=== PATIENT | female | born 1955 | race Caucasian/White ===

== ENCOUNTER 2024-08-06 17:13 | Emergency (ER) | payer MEDICAID ==
[~2024-08-06] VITALS: Ht 157.4 cm; Wt 77.3 kg
[~2024-08-06 17:13] MED LIST: ALDACTONE25 M1 PO; ANTIFUNGAL POWD85 G1 T; CETIRIZINE10 MG PO; DURICEF500 MG PO; MACROBID100 M1 PO; MELOXICAM5 MG PO; ONDANSETRON4 MG SL; OXYBUTYNIN5 MG PO; TUMERIC; ZOLOFT100 MG PO
[2024-08-06 17:57] LABS: BASO % 0.3 % (0.0-1.0); EOS % 0.2 % (1.0-4.0); HEMATOCRIT 42.7 % (37.0-47.0); MEAN CELL VOLUME 95.5 fl (81.0-99.0); MEAN CORPUSCULAR HGB 31.5 pg (27.0-31.0); MEAN PLATELET VOLUME 9.3 fl (9.6-12.3); MONO # 0.6 10*3/uL (0.1-1.0); MONO % 9.8 % (3.0-9.0); NEUT # 4.7 10*3/uL (2.3-7.9); NEUT % 81.1 % (47.0-73.0); PLATELET COUNT AUTOMATED 145 10*3/uL (130-400); RED BLOOD COUNT 4.47 10*6/uL (4.10-5.10); RED CELL DISTRI WIDTH 12.5 % (0-14.5); WHITE BLOOD COUNT 5.8 10*3/uL (4.8-10.8)
[2024-08-06 18:16] LABS: BUN 16 mg/dl (9-23); CHLORIDE 103 mmol/L (98-107); POTASSIUM 4.4 mmol/L (3.4-5.1)
[2024-08-06] MEDS ORDERED: Doxycycline Hyclate 100 MG 2 TAB ED PACK PO SCH (21:50)
[2024-08-06] MEDS ORDERED: VIBRAMYCIN100 MG PO (21:52)
[2024-08-06 22:50] VITALS: BP 112/68
== END 2024-08-06 22:15 ==
LOC: ED 17:13
PROVIDERS: Internal Medicine
DX: J40 Bronchitis, not specified as acute or chronic (principal); Z20.822 Contact with and (suspected) exposure to COVID-19; J06.9 Acute upper respiratory infection, unspecified; R11.10 Vomiting, unspecified; Z91.048 Other nonmedicinal substance allergy status; Z88.0 Allergy status to penicillin; Z88.2 Allergy status to sulfonamides; Z88.1 Allergy status to other antibiotic agents; Z88.5 Allergy status to narcotic agent; Z79.899 Other long term (current) drug therapy; Z98.890 Other specified postprocedural states; Z90.49 Acquired absence of other specified parts of digestive tract; Z87.891 Personal history of nicotine dependence